=== PATIENT | female | born 1980 | race Caucasian/White ===

== ENCOUNTER 2021-08-14 04:52 | Day surgery (SDC) | payer OTHER ==
[2021-08-12 19:13] VITALS: BMI 27.8
[2021-08-14] MEDS ORDERED: BUPIVACAINE HCL/PF 0.5% (5MG/ML) 10 ML VIAL ONE (07:21)
[2021-08-14] MEDS ORDERED: LIDOCAINE HCL 1%, 10 MG/ML (20ML VIAL) ONE (07:21)
[2021-08-14] MEDS ORDERED: MIDAZOLAM HCL 2 MG/2 ML SINGLE DOSE VIAL ONE (07:30)
[2021-08-14] MEDS ORDERED: PROPOFOL 20 ML ONE ×2 (07:30)
[2021-08-14] MEDS ORDERED: LIDOCAINE HCL 2% (20ML MULTI-DOSE VIAL) ONE (07:32)
[2021-08-14] MEDS ORDERED: DEXAMETHASONE SOD PHOSPHATE 4 MG/1 ML VIAL IVPUSH ONE (08:10)
[2021-08-14] MEDS ORDERED: DEXAMETHASONE SOD PHOSPHATE 4 MG/1 ML VIAL ONE (08:13)
[2021-08-14 10:21] VITALS: BP 125/71; PULSE 72; TEMP 96.9
== END 2021-08-14 11:18 | disposition home or self-care (01) ==
LOC: JASU-SURG 04:52
PROVIDERS: ATTEND Podiatrist
PROC: 0JBR0ZZ Excision of Left Foot Subcutaneous Tissue and Fascia, Open Approach (ICD-10-PCS; principal; 2021-08-14 07:30)
DX: D17.79 Benign lipomatous neoplasm of other sites (principal)
CPT/HCPCS: 73630-TC-LT; 81025; 88304-TC